=== PATIENT | female | born 2000 | race Caucasian/White ===

== ENCOUNTER 2023-05-25 09:09 | Emergency (ER) | payer OTHER ==
[2023-05-25 11:05] LABS: Pregnancy Test - Urine (BHCG) Negative (Negative); Pregu Control Background? CLEAR/WHITE (CLR/WHITE); Pregu Control Bar Appear? YES (CONTROL BAR); Specific Gravity 1.015 (1.002-1.036)
[2023-05-25] MEDS ORDERED: Ketorolac Tromethamine 30 MG/ML VIAL ONE (11:39)
== END 2023-05-25 12:09 | disposition home or self-care (01) ==
LOC: CSHERS 09:09
DX: M54.2 Cervicalgia (principal)
CPT/HCPCS: 72125; 81025; 96372; J1885

== ENCOUNTER 2023-06-16 14:27 | Emergency (ER) | payer OTHER ==
[2023-06-16 15:15] LABS: Pregnancy Test - Urine (BHCG) Negative (Negative); Pregu Control Background? CLEAR/WHITE (CLR/WHITE); Pregu Control Bar Appear? YES (CONTROL BAR); Specific Gravity 1.015 (1.002-1.036)
[2023-06-16] MEDS ORDERED: Ketorolac Tromethamine 30 MG/ML VIAL ONE (15:50)
== END 2023-06-16 15:45 | disposition home or self-care (01) ==
LOC: CSHERS 14:27
DX: S32.2XXA Fracture of coccyx, initial encounter for closed fracture (principal); M76.01 Gluteal tendinitis, right hip; W10.8XXA Fall (on) (from) other stairs and steps, initial encounter
CPT/HCPCS: 72170; 72220; 81025; 96372; J1885